=== PATIENT | male | born 1975 | race Caucasian/White ===

== ENCOUNTER 2017-12-11 08:46 | Day surgery (SDC) | payer OTHER ==
[~2017-12-11] VITALS: Ht 175.3 cm; Wt 95.4 kg
[~2017-12-11 08:46] MED LIST: ALBU2TAB4 PO; ALBUAER3 IN; ASPI81TA27 PO; BACL10TA PO; BECL80AE9 IN; BUTACAP OR; HYDR25TA4 PO; LEVO50TA7 PO; METO25TA5 PO; PRO10T PO; SIMV-8 PO
[2017-12-11] MEDS ORDERED: LIDOCAINE 2%HCL (LOCAL ANESTH.) INJ 20ML MDV ONE (09:10)
[2017-12-11] MEDS ORDERED: IOHEXOL 350 MG/ML 100ML IJ ONE (09:10)
[2017-12-11] MEDS ORDERED: SODIUM BICARB 50ML SYR 150 ML in SODIUM CHLORIDE 0.9% 1,000 ML IV SCH (09:15)
[2017-12-11] MEDS ORDERED: ANGIOMAX 250 MG VIAL IV ONE (09:27)
[2017-12-11] MEDS ORDERED: SODIUM CHL 0.9% 0 ML ONE (09:28)
[2017-12-11] MEDS ORDERED: fentaNYL CITRATE 100 MCG/2 ML VL ONE (09:28)
[2017-12-11] MEDS ORDERED: MIDAZOLAM HCL 1MG/1ML-2 ML VIAL ONE ×2 (09:28→10:47)
[2017-12-11] MEDS ORDERED: SODIUM BICARBONATE 50ML VIAL 150 ML in D5W 5% 1,000 ML IV SCH (09:30)
[2017-12-11] MEDS ORDERED: SODIUM BICARBONATE 8.4 % INJ 50ML VIAL IV ONE (09:34)
[2017-12-11] MEDS ORDERED: SODIUM BICARBONATE 8.4% INJ 50ML SYRINGE ONE (09:34)
[2017-12-11] MEDS ORDERED: hydrALAZINE HCL 20 MG/ML VL IV ONE (12:00)
[2017-12-11] MEDS ORDERED: hydrALAZINE HCL 20 MG/ML VL ONE (12:07)
== END 2017-12-11 15:00 | disposition home or self-care (01) ==
LOC: CATH 08:46
PROVIDERS: ATTEND Internal Medicine Cardiovascular Disease
DX: I27.20 Pulmonary hypertension, unspecified (principal); E66.9 Obesity, unspecified; Z68.31 Body mass index [BMI] 31.0-31.9, adult; E78.5 Hyperlipidemia, unspecified; I25.2 Old myocardial infarction; I73.9 Peripheral vascular disease, unspecified; Z79.01 Long term (current) use of anticoagulants
CPT/HCPCS: 93456; C1760; C1769; C1894; J0360; J1644; J2250; J3010; J7070; Q9967; 99152; 99153

== ENCOUNTER 2019-09-18 20:09 | Emergency (ER) | payer MEDICAID, OTHER ==
[~2019-09-18] VITALS: Ht 177.8 cm; Wt 97.5 kg
[~2019-09-18 20:09] MED LIST changes: +ASPI-404 PO; -ASPI81TA27 PO
[2019-09-18] MEDS ORDERED: ALBUTEROL SULF 2.5 MG/0.5ML(0.5%) NEB SOLN NEB STA (20:26)
[2019-09-18] MEDS ORDERED: IPRATROPIUM BROM 0.5 MG/2.5ML INH SOL NEB ONE (20:30)
[2019-09-18] MEDS ORDERED: methylPREDNISolone SOD SUCC 125 MG/2 ML VL IV ONE (20:30)
[2019-09-18] MEDS ORDERED: LORazepam 2MG/ML-1ML VIAL IV ONE (20:30)
[2019-09-18] MEDS ORDERED: diphenhdrAMINE HCL 50 MG/1 ML VL IV ONE ×2 (20:45)
[2019-09-18 21:03] LABS: Basophils # (auto) 0 uL; Basophils % (auto) 0.5 % (0.0-2.0); Eosinophils # (auto) 0.1 uL; Eosinophils % (auto) 0.8 % (0.0-7.0); Hematocrit 47.3 % (41.0-53.0); Hemoglobin 16.4 g/dL (13.5-17.5); Lymphocytes # (auto) 1.8 uL; Lymphocytes % (auto) 17.6 % (10.0-50.0); Mean Corpuscular Hemoglobin 30.5 pg (28.0-32.0); Mean Corpuscular Hgb Conc. 34.8 g/dL (32.0-36.0); Mean Corpuscular Volume 87.7 fL (80.0-100.0); Monocytes # (auto) 0.7 uL; Monocytes % (auto) 6.5 % (0.0-12.0); Neutrophils # (auto) 7.5 uL; Neutrophils % (auto) 74.6 % (37.0-80.0); Platelet Count (auto) 218 10^3/uL (140-450); Red Blood Cells 5.39 10^6/uL (4.5-5.90); Red Cell Distribution Width 14.8 % (11.8-14.3); White Blood Cell 10.1 10^3/uL (4.4-10.8)
[2019-09-18 21:19] LABS: Alcohol, Urine < 3.0 mg/dL (0-5); Amphetamine Screen, Urine POSITIVE (NEGATIVE); Barbiturate Scree,Urine NEGATIVE (NEGATIVE); Benzodiazephine Screen, Urine NEGATIVE (NEGATIVE); Cannabinoid Screen, Urine NEGATIVE (NEGATIVE); Cocaine Screen, Urine NEGATIVE (NEGATIVE); Opiate Scree,Urine NEGATIVE (NEGATIVE); Phencyclidine Screen, Urine NEGATIVE (NEGATIVE)
[2019-09-18 21:19] LABS: Albumin 3.9 g/dL (3.4-5.0); Anion Gap 10 (5-15); Blood Alcohol < 3.0 mg/dL (0-5); Blood Urea Nitrogen 17 mg/dL (7-18); Calcium 8.5 mg/dL (8.5-10.1); Carbon Dioxide 22 mmol/L (21-32); Chloride 109 mmol/L (98-107); Glucose 108 mg/dL (74-106); Potassium 3.6 mmol/L (3.5-5.1); Sodium 141 mmol/L (136-145)
[2019-09-18 21:24] LABS: Alanine Aminotransferase 29 U/L (16-61); Alkaline Phosphatase 86 U/L (45-117); Aspartate Aminotransferase 18 U/L (15-37); BUN/Creatinine Ratio 8.6; Bilirubin, Total 0.7 mg/dL (0.2-1.0); GFR African American 48 mL/min; GFR Non-African American 39 mL/min; Total Protein 7.5 g/dL (6.4-8.2)
[2019-09-19] VITALS: BP 110/76
== END 2019-09-19 00:46 | disposition left against medical advice (07) ==
LOC: EDBD 20:09 → ER 20:09
DX: T78.40XA Allergy, unspecified, initial encounter (principal); T78.3XXA Angioneurotic edema, initial encounter; I27.20 Pulmonary hypertension, unspecified; R79.89 Other specified abnormal findings of blood chemistry; Z79.899 Other long term (current) drug therapy; Z91.018 Allergy to other foods; Z53.29 Procedure and treatment not carried out because of patient's decision for other reasons; X58.XXXA Exposure to other specified factors, initial encounter
CPT/HCPCS: 36415; 71045; 80053; 80307; 80320; 83880; 84484; 85025; 93005; 96374; 96375; 99284; J1200; J2060; J2930

== ENCOUNTER 2019-11-19 01:50 | Emergency (ER) | payer MEDICAID ==
[~2019-11-19] VITALS: Ht 182.9 cm; Wt 90.7 kg
[2019-11-19 02:00] VITALS: BP 151/94
== END 2019-11-19 02:21 | disposition left against medical advice (07) ==
LOC: EDBD 01:50 → ER 01:55
DX: Z53.21 Procedure and treatment not carried out due to patient leaving prior to being seen by health care provider (principal)

== ENCOUNTER 2021-02-14 16:57 | Emergency (ER) | payer MEDICAID ==
[~2021-02-14] VITALS: Ht 175.3 cm; Wt 96.2 kg
[2021-02-14 16:57] VITALS: BP 136/87
[~2021-02-14 16:57] MED LIST changes: -ASPI-404 PO; +ASPI-543 PO; -PRO10T PO; +PROC10TA2 PO
== END 2021-02-14 19:01 | disposition home or self-care (01) ==
LOC: ER 16:57
DX: I27.20 Pulmonary hypertension, unspecified (principal); Z48.01 Encounter for change or removal of surgical wound dressing
CPT/HCPCS: 71045

== ENCOUNTER 2021-06-12 18:29 | Emergency (ER) | payer MEDICAID ==
[~2021-06-12] VITALS: Ht 177.8 cm; Wt 104.3 kg
[2021-06-12] MEDS ORDERED: methylPREDNISolone SOD SUCC 125 MG/2 ML VL IV ONE (19:15)
[2021-06-12] MEDS ORDERED: EPINEPHrine HCL 1 MG/1 ML AMP IM ONE (19:15)
[2021-06-12] MEDS ORDERED: diphenhdrAMINE HCL 50 MG/1 ML VL IV ONE (19:15)
[2021-06-12] MEDS ORDERED: FAMOTIDINE (10MG/ML) 2ML VL IV ONE (19:15)
[2021-06-12 19:25] VITALS: BP 120/71
== END 2021-06-12 21:25 | disposition left against medical advice (07) ==
LOC: ER 18:30
DX: T78.40XA Allergy, unspecified, initial encounter (principal); I11.0 Hypertensive heart disease with heart failure; I50.9 Heart failure, unspecified; X58.XXXA Exposure to other specified factors, initial encounter
CPT/HCPCS: 96372; 96374; 96375; 99284; J0171; J1200; J2930; J3490

== ENCOUNTER 2021-06-26 14:17 | Emergency (ER) | payer MEDICAID ==
[~2021-06-26] VITALS: Ht 177.8 cm; Wt 107.0 kg
[2021-06-26 16:01] VITALS: BP 119/86
== END 2021-06-26 16:05 | disposition home or self-care (01) ==
LOC: ER 14:17
DX: J02.9 Acute pharyngitis, unspecified (principal); I50.9 Heart failure, unspecified; Z79.899 Other long term (current) drug therapy; Z79.82 Long term (current) use of aspirin; Z88.1 Allergy status to other antibiotic agents; Z91.018 Allergy to other foods
CPT/HCPCS: 71046